=== PATIENT | female | born 1970 | race Caucasian/White ===

== ENCOUNTER 2025-01-05 09:31 | Emergency (ER) | payer OTHER ==
[~2025-01-05] VITALS: Ht 162.6 cm; Wt 72.6 kg
[2025-01-05 09:35] VITALS: TEMP 98.6
[2025-01-05 09:38] VITALS: PULSE 89; RESP 20
[2025-01-05] MEDS: DEXAMETHASONE SOD PHOS 10 MG/1 ML VIAL IV ONE (10:54)
[2025-01-05 11:26] LABS: CLARITY,URINE HAZY (CLEAR); COLOR,URINE YELLOW (YELLOW)
[2025-01-05 11:27] LABS: AMORPHOUS SEDIMENT,URINE FEW; BACTERIA,URINE FEW /HPF; BILIRUBIN,URINE NEGATIVE (NEGATIVE); EPITHELIAL CELLS,URINE FEW /LPF; GLUCOSE, URINE NEGATIVE (NEGATIVE); KETONES,URINE NEGATIVE (NEGATIVE); LEUKOCYTE ESTERASE ,URINE SMALL (NEGATIVE); NITRITE,URINE NEGATIVE (NEGATIVE); PH,URINE 6.5 (5 - 7); PROTEIN,URINE DIPSTICK NEGATIVE (NEGATIVE); URINE UROBILINOGEN 0.2 mg/dL (0.2 - 1)
[2025-01-05] MEDS ORDERED: ULTRAM 50MG50 MG PO (12:31)
[2025-01-05] MEDS ORDERED: MEDROL4 M2 PO (12:31)
[2025-01-05] MEDS ORDERED: CEFDINIR300 MG PO (12:31)
[2025-01-05 12:46] VITALS: BP 133/65; PULSE 69; RESP 18; TEMP 98.3; O2SAT 97
== END 2025-01-05 12:40 | disposition home or self-care (01) ==
LOC: ER 10:50
DX: M25.561 Pain in right knee (principal); M25.532 Pain in left wrist; M25.531 Pain in right wrist; M06.9 Rheumatoid arthritis, unspecified; G89.29 Other chronic pain; N39.0 Urinary tract infection, site not specified; F17.210 Nicotine dependence, cigarettes, uncomplicated
CPT/HCPCS: 81001; 87086; 99284; J1100